=== PATIENT | female | born 1995 | race Caucasian/White ===

== ENCOUNTER 2020-01-21 18:16 | Emergency (ER) | payer OTHER ==
[2020-01-21 18:26] VITALS: BP 128/83; PULSE 96; RESP 18; TEMP 98.2
[2020-01-21 19:02] LABS: Appearance,Urine Clear (Clear); Bilirubin,Urine Negative (Negative); Blood,Urine Small (Negative); Color,Urine Yellow; Glucose,Urine (UA) Negative (Negative); Ketones,Urine Negative (Negative); Leukocyte Esterase,Urine Negative (Negative); Mucus,Urine Rare /hpf; Nitrite,Urine Negative (Negative); Protein,Urine Trace (Negative); RBC,Urine 1 /hpf (0-5); Specific Gravity,Urine 1.023 (1.001-1.035); Squamous Epithelial Cell,Urine 6 /hpf (0-4); Urobilinogen,Urine <2.0 mg/dL (<2.0); WBC,Urine 1 /hpf (0-5)
[2020-01-21 19:07] LABS: Amphetamine Screen,Urine Not Detected (NotDetected); Barbiturate Screen,Urine Not Detected (NotDetected); Benzodiazepines Screen,Urine Not Detected (NotDetected); Cocaine Screen,Urine Not Detected (NotDetected); Methadone Screen, Urine Not Detected (NotDetected); Opiate Screen,Urine Not Detected (NotDetected); Oxycodone Screen, Urine Not Detected (NotDetected); Phencyclidine Screen,Urine Not Detected (NotDetected); Tricyclic Antidepressant,Urine Not Detected (NotDetected); Urn Cannabinoid Scrn Not Detected (NotDetected)
--- NOTE | 2020-01-21 19:13 | ED ---
Psych HPI - General Chief Complaint: Psychiatric Symptoms Stated Complaint: EPS eval Time Seen by Provider: 01/21/20 18:27 Source: patient Mode of arrival: ambulatory - History of Present Illness Initial Comments: 24yo female presenting for cc of suicidal ideation wtih plan. pt states that she has had increasing suicidal ideations x 1 month that have been increasing in frequency. pt states she plan to get a helium tank and asphyxiate herself. patient denies attempt. denies ingestion of foreign substance. pt presented today for help. denies psychiatric history. denies medications use. denies or urinary symptoms. denies physical complaints such as chest pain or SOB. patient appears nontoxic on arrival. - Related Data Home Medications Medication Instructions Recorded Confirmed Albuterol Inhaler [Ventolin Hfa 2 puff INHALATION RT-QID PRN 01/21/20 01/21/20 Inhaler] Allergies Allergy/AdvReac Type Severity Reaction Status Date / Time pride Allergy Unknown Verified 01/21/20 19:27 grass pollen Allergy Dyspnea Verified 01/21/20 19:27 nut - unspecified Allergy Anaphylaxis Verified 01/21/20 19:27 soybean Allergy Anaphylaxis/Abdominal Verified 01/21/20 19:27 Pain tree and shrub pollen Allergy Dyspnea Verified 01/21/20 19:27 corn AdvReac Nausea & Verified 01/21/20 19:27 Vomiting & Diarrhea Review of Systems ROS Statement: Those systems with pertinent positive or pertinent negative responses have been documented in the HPI. ROS Other: All systems not noted in ROS Statement are negative. Past Medical History Past Medical History: Asthma History of Any Multi-Drug Resistant Organisms: None Reported Past Surgical History: Tonsillectomy Past Psychological History: No Psychological Hx Reported Smoking Status: Never smoker Past Alcohol Use History: Rare Past Drug Use History: None Reported General Exam - General Exam Comments Initial Comments: General: The patient is awake and alert, in no distress, and does not appear acutely ill. Eye: Pupils are equal, round and reactive to light, extra-ocular movements are intact. No nystagmus. There is normal conjunctiva bilaterally. No signs of icterus. Cardiovascular: There is a regular rate and rhythm. No murmur, rub or gallop is appreciated. Respiratory: Lungs are clear to auscultation, respirations are non-labored, breath sounds are equal. No wheezes, stridor, rales, or rhonchi. Gastrointestinal: Soft, non-distended, non-tender abdomen without masses or organomegaly noted. There is no rebound or guarding present. Musculoskeletal: Normal ROM, no tenderness. Strength 5/5. Sensation intact. radial pulses equal bilaterally 2+. Neurological: A&O x 3. CN II-XII intact grossly, There are no obvious motor or sensory deficits. Coordination appears grossly intact. Speech is normal. Skin: Skin is warm and dry and no rashes or lesions are noted. Psychiatric: Cooperative, appropriate mood & affect, normal judgment. Limitations: no limitations Course Vital Signs 01/21/20 18:17 Temperature 98.2 F Pulse Rate 96 Respiratory 18 Rate Blood Pressure 128/83 O2 Sat by Pulse 96 Oximetry - Reevaluation(s) Reevaluation #1: pt stating that she is not suicidal to EPS nurse and states that she just wants to go home with resources. I had patient evaluated by attending who she states she would not hurt herself just had thoughts and wanted resources. psychiatrist recommended discharge. pt will have safety plan set in place. 01/21/20 20:29 Medical Decision Making - Medical Decision Making 24yo presenting for suicidal thoughts with plan. denied suicidal ideations with EPS nurse my attending. just wanted resources for outpatient care. safety plan in place. givne anxiet medications. pt will be discharge with strict return parameters. - Lab Data Lab Results 01/21/20 01/21/20 Range/Units 18:29 18:43 Urine Color Yellow Urine Appearance Clear (Clear) Urine pH 6.0 (5.0-8.0) Ur Specific [place] 1.023 (1.001-1.035) Urine Protein Trace H (Negative) Urine Glucose (UA) Negative (Negative) Urine Ketones Negative (Negative) Urine Blood Small H (Negative) Urine Nitrite Negative (Negative) Urine Bilirubin Negative (Negative) Urine Urobilinogen <2.0 (<2.0) mg/dL Ur Leukocyte Esterase Negative (Negative) Urine RBC 1 (0-5) /hpf Urine WBC 1 (0-5) /hpf Ur Squamous Epith Cells 6 H (0-4) /hpf Urine Mucus Rare H (None) /hpf Urine HCG, Qual Not Detected (Not Detectd) Urine Opiates Screen Not Detected (NotDetected) Ur Oxycodone Screen Not Detected (NotDetected) Urine Methadone Screen Not Detected (NotDetected) Ur Propoxyphene Screen Not Detected (NotDetected) Ur Barbiturates Screen Not Detected (NotDetected) U Tricyclic Antidepress Not Detected (NotDetected) Ur Phencyclidine Scrn Not Detected (NotDetected) Ur Amphetamines Screen Not Detected (NotDetected) U Methamphetamines Scrn Not Detected (NotDetected) U Benzodiazepines Scrn Not Detected (NotDetected) Urine Cocaine Screen Not Detected (NotDetected) U Marijuana (THC) Screen Not Detected (NotDetected) Disposition Clinical Impression: Suicidal thoughts Disposition: HOME SELF-CARE Condition: Stable Instructions (If sedation given, give patient instructions): Help Prevent Suicide (ED), Suicide Prevention (ED) Additional Instructions: Please use medication as discussed. Please follow-up with family doctor in the next 2 days.. Please return to emergency room if the symptoms increase or worsen or for any other concerns. Is patient prescribed a controlled substance at d/c from ED?: No Referrals: Simon Barfield DO [Primary Care Provider] - 1-2 days Time of Disposition: 20:30
[2020-01-21] MEDS ORDERED: LORazepam 1 MG TAB PO STA (20:30)
== END 2020-01-21 20:45 | disposition home or self-care (01) ==
LOC: EC 18:16
DX: R45.851 Suicidal ideations (principal); J45.909 Unspecified asthma, uncomplicated; Z91.018 Allergy to other foods; Z91.048 Other nonmedicinal substance allergy status
CPT/HCPCS: 80306; 81001; 81025; 82075; 99285